=== PATIENT | male | born 1990 | race Caucasian/White ===

== ENCOUNTER → 2022-12-31 | Outpatient (CLI) | payer OTHER, MEDICAID ==
[~2022-12-31] MED LIST: ACHD5005 PO; FAMO20TA5 PO; GNT.3OP5 OP; HYDR-1231 PO; NAPR-243 PO; SCR1T PO; TRM50T PO
--- NOTE | 2022-12-31 16:28 | Diagnostic Imaging Report ---
INDICATION: PECTUS EXCAVATUM, PAIN IN SHOULDER. COMPARISON: None. FINDINGS: Three views of the right shoulder were obtained. There is no fracture, dislocation, or other acute bony abnormality identified. The soft tissues appear unremarkable. No radiopaque foreign body is identified. The visualized portions of the right lung are clear. IMPRESSION: No acute fractures or dislocations of the right shoulder. Dictated by: Dictated on workstation # [id number]
--- NOTE | 2022-12-31 17:07 | Diagnostic Imaging Report ---
INDICATION: PECTUS EXCAVATUM. COMPARISON: 10/17/2014. FINDINGS: Frontal and lateral views of the chest demonstrate normal heart size and pulmonary vascularity. The lungs are clear. There are no signs of infiltrate, pleural effusions, or pneumothoraces. The visualized osseous structures show no acute abnormalities. Lateral view shows mild pectus excavatum deformity. IMPRESSION: No acute process. No signs of infiltrates, effusions, or pneumothoraces. Dictated by: Dictated on workstation # [id number]
== END ==
LOC: RAD FS 14:17
PROVIDERS: ATTEND Registered Nurse Emergency
DX: Q67.6 Pectus excavatum (principal); M25.511 Pain in right shoulder
CPT/HCPCS: 71046; 73030

== ENCOUNTER → 2023-01-14 | Outpatient (CLI) | payer OTHER, MEDICAID ==
[~2023-01-14] MED LIST changes: +RT-ALBUTEROL SULF 2.5 MG/3 ML PRE-MIX VIAL INH ONE
== END ==
LOC: RT 12:19
PROVIDERS: ATTEND Registered Nurse Emergency
DX: Z01.811 Encounter for preprocedural respiratory examination (principal)
CPT/HCPCS: 94060; 94726; 94729